=== PATIENT | male | born 1985 | race Caucasian/White ===

== ENCOUNTER 2019-02-20 09:58 | Inpatient (IN) | payer MEDICAID ==
[2019-02-20 10:15] VITALS: O2SAT 99
--- NOTE | 2019-02-20 10:27 | ED PDOC ---
Arrival/HPI - General Chief Complaint: Psychiatric Evaluation Time Seen by Provider: 02/20/19 09:59 Historian: Patient, EMS, Other ([facility] documentation) - History of Present Illness Narrative History of Present Illness (Text): 02/20/19 10:25 34-year-old male complaining of depression and suicidal ideation with a history of drug abuse. Patient denies chest pain or shortness of breath. No fevers or chills. Patient is psychiatric transfer from [facility] for admission for depression and suicidal ideation. Past Medical History - Provider Review Nursing Documentation Reviewed: Yes - Travel History Have you recently traveled outside [place] w/in the past 3 mons?: No - Infectious Disease Hx of Infectious Diseases: None - Cardiac Hx Cardiac Disorders: No - Neurological Hx Neurological Disorder: No - Gastrointestinal Hx Gastrointestinal Disorders: No - Psychiatric Hx Psychophysiologic Disorder: No Hx Depression: Yes Hx Schizophrenia: Yes Hx Substance Use: Yes - Anesthesia Hx Anesthesia: Yes Hx Anesthesia Reactions: No Family/Social History - Physician Review Nursing Documentation Reviewed: Yes Family/Social History: Unknown Family HX Smoking Status: Current Some Days Smoker Hx Alcohol Use: Yes Frequency of alcohol use: Socially Hx Substance Use: Yes Substance used: heroin, cocaine Allergies/Home Meds Allergies/Adverse Reactions: Allergies tomato Allergy (Verified 02/20/19 10:19) RASH trazodone Adverse Reaction (Verified 02/20/19 10:21) RASH Review of Systems - Review of Systems Constitutional: absent: Fatigue, Fevers Respiratory: absent: SOB Cardiovascular: absent: Chest Pain Gastrointestinal: absent: Abdominal Pain Musculoskeletal: absent: Arthralgias Psychiatric: Depression, Suicidal Ideation Physical Exam Vital Signs Reviewed: Yes Vital Signs Temp Pulse Resp BP Pulse Ox 02/20/19 10:00 98.1 F 54 L 18 128/68 99 Temperature: Afebrile Blood Pressure: Normal Pulse: Bradycardic Respiratory Rate: Normal Appearance: Positive for: Well-Appearing, Non-Toxic, Comfortable Pain Distress: None Mental Status: Positive for: Alert and Oriented X 3 - Systems Exam Head: Present: Atraumatic Respiratory/Chest: Present: Clear to Auscultation Cardiovascular: Present: Regular Rate and Rhythm Abdomen: No: Tenderness Neurological: Present: GCS=15, Speech Normal Skin: Present: Warm, Dry, Normal Color. No: Rashes Psychiatric: Present: Alert, Oriented x 3 Medical Decision Making ED Course and Treatment: 02/20/19 10:28 34-year-old male medically cleared for psychiatric admission from [facility]. Impression: Depression and suicidal ideation with polysubstance abuse Admit to the behavioral health floor Disposition/Present on Arrival - Present on Arrival Any Indicators Present on Arrival: No History of DVT/PE: No History of Uncontrolled Diabetes: No Urinary Catheter: No History of Decub. Ulcer: No History Surgical Site Infection Following: None - Disposition Have Diagnosis and Disposition been Completed?: Yes Diagnosis: Depression Disposition: HOSPITALIZED Disposition Time: 10:20 Patient Plan: Admission Condition: FAIR
--- NOTE | 2019-02-20 15:36 | PCM.BM ---
<Lou Miller - Last Filed: 02/20/19 15:33> Treatment Plan Problems - Problems identified on initial assessmt high risk suiciide Date Initiated: 02/20/19 Time Initiated: 15:34 Assessment reference: NA Status: Active feeling of worthlessness Date Initiated: 02/20/19 Time Initiated: 15:36 Assessment reference: NA Status: Active hopelessness/helplesness Date Initiated: 02/20/19 Time Initiated: 15:37 Assessment reference: NA Status: Active altered sleep pattern Date Initiated: 02/20/19 Time Initiated: 15:38 Assessment reference: NA Status: Active medication-non adherence Date Initiated: 02/20/19 Time Initiated: 15:39 Assessment reference: NA Status: Active anxiety r/t substance use Date Initiated: 02/20/19 Time Initiated: 15:40 Assessment reference: NA Status: Active low motivation to change Date Initiated: 02/20/19 Time Initiated: 15:41 Assessment reference: NA Status: Active Treatment assets and liabiliti Patient Assests: adapts well, ADL independent, negotiates basic needs Patient Liabilities: physical pain, substance abuse - Milieu Protocol Maintain good personal hygiene: daily Remind patient to perform daily oral care, daily Assist patient to perform ADL's, every shift Encourage regular showers Conduct patient checks and document Observation sheet: Q15 minutes Maintain personal safety: every shift Educate patient to report safety concerns to staff, every shift Monitor environment for contraband/sharps Medication safety: Monitor for expected outcome, potential side effects: every shift, Assess barriers to learning: every shift, Assess readiness for medication education: every shift Discharge/Continuing Care - Education Needs Education Needs: Patient Medication, Patient Diagnosis/Disease Process, Patient Coping Skills, Patient Placement options, Patient Community resources, Patient Personal Hygiene/Grooming, Patient Aftercare Safety Plan - Discharge Discharge Criteria: Tolerates medication w/o severe side effects, Free of Suicidal thoughts, Normal sleep pattern, Ability to care for self <Cecilia White - Last Filed: 02/20/19 16:13> - Diagnosis (1) Bipolar disorder Status: Acute Interventions: 02/20/19 16:14 Psychoeducation Psychopharmacology/adjustment of medications as needed/ monitoring possible side effects Monitor blood level of mood stabilizers Evaluate pt on daily basis Compliance with medications and follow up appointments Suicide and homicide risk assessment and prevention, coping strategies, safety plan Relapse prevention Reduction of symptoms Improve functional status Family involvement As outpatient: cognitive behavioral therapy (2) Polysubstance dependence including opioid type drug, episodic abuse Status: Acute Interventions: 02/20/19 16:14 Monitoring withdrawal symptoms Medical detoxification Pharmacotherapy for alcohol/benzos/opioid dependence Maintaining sobriety Relapse prevention Possible rehabilitation Motivational interviewing 12-step programs: AA meetings <Rachel Roberts - Last Filed: 02/21/19 16:20>
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
[2019-02-20] MEDS: Multivitamin With Minerals Tab PO SCH (16:38)
[2019-02-20] MEDS ORDERED: Alum-Mag Hydrox-Simethicone Susp (30 mL) PO PRN (18:31)
[2019-02-20] MEDS ORDERED: Magnesium Hydroxide Susp 30 ml UD PO PRN (18:32)
[2019-02-21 08:58] LABS: HDL CHOLESTEROL 22 mg/dL (29-60)
[2019-02-21 09:09] LABS: LDL CHOLESTEROL 45 mg/dL (0-129)
--- NOTE | 2019-02-21 15:17 | PCM.PYCHPN ---
Psychiatric Progress Note - Psychiatric Progress Note Patient seen today, length of contact: 30 minutes Patient Chief Complaint: "I don't feel good, I want to , I am withdrawing badly..." Problems Identified/Issues Discussed: Treatment plan, medications, aftercare plan, suicide/homicide prevention, coping strategies. Medical Problems: See HPI at present: Patient is withdrawing from opioids Diagnostic Results: Lab Results 02/21/19 08:00: Triglycerides 79, Cholesterol 75 L, LDL Cholesterol Direct 45, HDL Cholesterol 22 L Vital Signs Temp Pulse Pulse Resp BP Pulse Ox 02/21/19 07:34 97.8 F 70 20 02/20/19 16:00 79 118/74 02/20/19 11:52 50 L 20 02/20/19 10:00 98.1 F 54 L 18 128/68 99 DSM 5 Symptoms Update: Shortly pt is 34yo male with reported h/o mood spectrum disorder, polysubstance dependence, patient has at least one psychiatric admission in [address] [place] [address] and 2016, patient has questionable history of suicidal attempts, patient has chronic noncompliance with medications and follow-up appointments, patient was transferred from [facility] where he presented for evaluation of depressive symptoms and possible suicidal ideation, patient was medically cleared, transfer was uneventful. Patient requires further evaluation and stabilization and medication adjustment. Patient was seen today at the treatment team meeting room, patient presented with some improvement of his symptoms, patient was able to participate in interview, at the same time patient presented with opioid withdrawals, patient has goosebumps, rhinorrhea, pt complaining of muscle pain. Patient was advised to take medication as needed, treatment plan discussed in details. Patient was more pleasant and appreciative. Vital signs were within normal limits, most likely patient is withdrawing from opioids. Patient reported that he might also withdrawing from the alcohol, this functional tester typewriters advised patient that at present moment he is on Librium, still have withdrawal symptoms he needs to ask as needed medications. Patient reported that he feels hopeless, helpless, "my mind is not right, I cannot concentrate..", pt has h/o ADHD, will consider to add Wellbutrin. So far patient tolerates medications well, no side effects observed or reported, [place] 0, no EPS. As per staff patient is self isolating, not participating in unit activities, has withdrawal symptoms from opioids as well as alcohol. Impression: As per history bipolar disorder As per history attention deficit disorder Polysubstance abuse and dependence Rule out alcohol/opioid withdrawal symptoms Medication Change: Yes (Librium increased, Seroquel increased) Medical Record Reviewed: Yes Consults ordered or reviewed: Patient does not have any major medical issues, will consider to call medical consult for this patient if needs Mental Status Examination - Cognitive Function Orientation: Person, Place, Situation Memory: Impaired Attention: Poor Concentration: Poor Association: Loose Fund of Knowledge: Poor - Mood Mood: Depressed, Anxious - Affect Affect: Constricted (Irritable and angry), Flat - Formal Thought Process Formal Thought Process: Hallucinations, Delusions, Paranoia - Suicidal Ideation Suicidal Ideation: No Plan: Passive wish to be - Homicidal Ideation Homicidal Ideation: No Goal/Treatment Plan - Goal/Treatment Plan Need for Continued Stay: Remain at risks for inpatient hospitalization, Severe depression anxiety, Discharge may exacerbated symptoms, Severe functional impairment Progress Toward Problem(s) and Goals/Treatment Plan: Milieu/structure/supportive therapy SW consultation for discharge plan and social issues, possible inpatient rehab Med management Seroquel for psychosis and mood stabilization Neurontin for mood stabilization Multivitamins thiamine and folic acid Librium for possible alcohol withdrawal symptoms Symptomatic treatment for opioid withdrawals will consider wellbutrin for mood and adhd We will monitor vital signs Family involvement Follow up on labs Will monitor closely Pt was educated about risk/benefits and alternatives of medications, coping strategies (safety plan, suicide prevention), relapse prevention, importance of follow up with psychiatrist and therapist, stay away from drugs/alcohol/smoking Estimated Date of D/C: 02/28/19
[2019-02-21] MEDS: Multivitamin With Minerals Tab PO SCH (16:05)
[2019-02-22] MEDS: Multivitamin With Minerals Tab PO SCH (08:49)
--- NOTE | 2019-02-22 09:44 | PCM.PYCHPN ---
Psychiatric Progress Note - Psychiatric Progress Note Patient seen today, length of contact: 30 minutes Problems Identified/Issues Discussed: I reviewed assessment and recent notes. Patient is a 34 yo male with reported h/o mood spectrum disorder, polysubstance dependence, at least one psychiatric admission in [facility] in 2016, +questionable history of suicidal attempts, +chronic noncompliance with medications and follow-up appointments who was transferred from [facility] where he presented for evaluation of depressive symptoms and possible suicidal ideation. Patient has been depressed and labile on the unit but control is improving. Treatment team meeting on Sunday was productive, he could participate in an interview and express needs. Still reported feeling helpless and hopeless. Today he is a little more labile and unhappy. Indicates that he remains uncomfortable from withdrawals. He is superficially respectful but edgy and seems as though he can escalate if asked too many questions. Patient continues to deny any issues with his medications or any hallucinations. Thought process is coherent overall as he can respond to my questioning relevantly and consistently. As per staff patient is oriented x3, self isolating, guarded and not participating in unit activities. He can be labile and generally doesn't want to engage with others. This may be due to the discomfort of current withdrawals. Nonetheless his appetite is good and needs some limit setting about having too many snacks. Diagnostic Results: As per history bipolar disorder As per history attention deficit disorder Polysubstance abuse and dependence Rule out alcohol/opioid withdrawal symptoms Medication Change: Yes (Librium increased, Seroquel increased) Medical Record Reviewed: Yes Mental Status Examination - Cognitive Function Orientation: Person, Place, Situation Memory: Impaired Attention: Poor Concentration: Poor Association: Loose Fund of Knowledge: Poor - Mood Mood: Depressed, Anxious - Affect Affect: Constricted (Irritable and angry), Flat - Formal Thought Process Formal Thought Process: Hallucinations, Delusions, Paranoia - Suicidal Ideation Suicidal Ideation: No - Homicidal Ideation Homicidal Ideation: No Goal/Treatment Plan - Goal/Treatment Plan Need for Continued Stay: Remain at risks for inpatient hospitalization, Severe depression anxiety, Discharge may exacerbated symptoms, Severe functional impairment Progress Toward Problem(s) and Goals/Treatment Plan: * group, milieu and supportive tx * Symptomatic treatment of opioid withdrawals, c/w clonidine 0.1 mg po TID prn * Librium 50 mg po QID prn * Consider naltrexone if patient is motivated, however he needs to be clean from opiates for at least 7-10 days. * Neurontin 300 mg po tid * Seroquel 100 mg po bid and 100 mg po HS * Consider Wellbutrin for mood and hx of adhd symptoms. * Ambien 10 mg po HS prn * Vitals reviewed and noted below: Selected Entries 02/21/19 02/21/19 02/22/19 07:34 16:00 05:12 Temperature 97.8 F Pulse Rate 70 102 H 78 Respiratory 20 Rate Blood Pressure 119/66 110/74 Estimated Date of D/C: 02/28/19
[2019-02-23] MEDS: Multivitamin With Minerals Tab PO SCH (10:08)
--- NOTE | 2019-02-23 10:28 | PCM.PYCHPN ---
Psychiatric Progress Note - Psychiatric Progress Note Patient seen today, length of contact: 30 minutes Problems Identified/Issues Discussed: I reviewed assessment and recent notes. Patient is a 34 yo male with reported h/o mood spectrum disorder, polysubstance dependence, at least one psychiatric admission in [facility] in 2016, +questionable history of suicidal attempts, +chronic noncompliance with medications and follow-up appointments who was transferred from [facility] where he presented for evaluation of depressive symptoms and possible suicidal ideation. Patient has been depressed and labile on the unit but control is improving. Treatment team meeting on Sunday was productive, he could participate in an interview and express needs. Still reported feeling helpless and hopeless. Over the weekend he has been a little more labile and unhappy. Indicates that he remains uncomfortable "I am still sweating a lot" and cannot sleep well because of withdrawals. He is superficially respectful but edgy and seems as though he can escalate if asked too many questions. Indicates that he still "doesn't feel normal". Patient continues to deny any issues with his medications or any hallucinations. Thought process is coherent overall as he can respond to my questioning rele vantly and consistently. As per staff patient is oriented x3, self isolating, guarded and not participating in unit activities. He can be labile and generally wants to be left alone which is what he actually verbalizes "I want to be left alone, I don't feel well". This is very likely due to the discomfort of current withdrawals. Nonetheless his appetite is good and needs some limit setting about having too many snacks. Diagnostic Results: As per history bipolar disorder As per history attention deficit disorder Polysubstance abuse and dependence Rule out alcohol/opioid withdrawal symptoms Medication Change: Yes (Librium decreased, added methadone) Medical Record Reviewed: Yes Mental Status Examination - Cognitive Function Orientation: Person, Place, Situation Memory: Impaired Attention: Poor Concentration: Poor Association: Loose Fund of Knowledge: Poor - Mood Mood: Depressed, Anxious - Affect Affect: Constricted (Irritable and angry), Flat - Formal Thought Process Formal Thought Process: Hallucinations, Delusions, Paranoia - Suicidal Ideation Suicidal Ideation: No - Homicidal Ideation Homicidal Ideation: No Goal/Treatment Plan - Goal/Treatment Plan Need for Continued Stay: Remain at risks for inpatient hospitalization, Severe depression anxiety, Discharge may exacerbated symptoms, Severe functional impairment Progress Toward Problem(s) and Goals/Treatment Plan: * group, milieu and supportive tx * Symptomatic treatment of opioid withdrawals, c/w clonidine 0.1 mg po TID prn. Patient given methadone 5 mg x1 on 02/23/19 to help with withdrawals. * Librium 50 mg po QID decreased to q8 on 02/23/19 VSS * Consider naltrexone if patient is motivated, however he needs to be clean from opiates for at least 7-10 days. * Neurontin 300 mg po tid * Seroquel 100 mg po bid and 100 mg po HS * Consider Wellbutrin for mood and hx of adhd symptoms. * Ambien 10 mg po HS changed to standing * Vitals reviewed and noted below: Selected Entries 02/22/19 02/22/19 02/22/19 07:00 16:13 22:39 Temperature 97.6 F Pulse Rate 64 68 70 Respiratory 18 Rate Blood Pressure 102/61 112/63 112/69 02/23/19 05:06 Temperature Pulse Rate 86 Respiratory Rate Blood Pressure 101/72 Estimated Date of D/C: 02/28/19
[2019-02-24] MEDS: Multivitamin With Minerals Tab PO SCH (08:22)
--- NOTE | 2019-02-24 08:46 | PCM.PYCHPN ---
Psychiatric Progress Note - Psychiatric Progress Note Patient seen today, length of contact: 30 minutes Problems Identified/Issues Discussed: I reviewed assessment and recent notes. Patient is a 34 yo male with reported h/o mood spectrum disorder, polysubstance dependence, at least one psychiatric admission in [facility] in 2016, +questionable history of suicidal attempts, +chronic noncompliance with medications and follow-up appointments who was transferred from [facility] where he presented for evaluation of depressive symptoms and possible suicidal ideation. Patient has been depressed and labile on the unit but control is improving. Treatment team meeting on Sunday was productive, he could participate in an interview and express needs. Still reported feeling helpless and hopeless. Over the weekend he has been a little more labile and unhappy. Indicates that he remains uncomfortable "I am still sweating a lot" and cannot sleep well because of withdrawals. He was superficially respectful but edgy and seemed as though he could escalate if asked too many questions. Indicates that he still "doesn't feel normal". Staff noted that he was guarded and self-isolating and generally wanted to be left alone. This is very likely due to the discomfort of current withdrawals. Today patient continues to deny any issues with his medications or any hallucinations. Thought process is coherent overall as he can respond to my questioning relevantly and consistently. He is slowly feeling better, irritability and emotional control are improving. He is more visible and appears better groomed. He reports appreciation for the methadone and librium provided to him. He reports interest and motivation to attend inpatient rehab, [facility] sober living facility in [place]. As per staff, patient is oriented x3 and spending more time participating in unit activities. He was observed watching tv and interacting with peers yesterday. He seems less angry and arias. And more grateful. Appetite is good and he slept better with ambien provided yesterday. Diagnostic Results: As per history bipolar disorder As per history attention deficit disorder Polysubstance abuse and dependence Rule out alcohol/opioid withdrawal symptoms Medication Change: Yes (Librium further decreased, added methadone) Medical Record Reviewed: Yes Mental Status Examination - Cognitive Function Orientation: Person, Place, Situation Memory: Impaired Attention: Poor Concentration: Poor Association: Loose Fund of Knowledge: Poor - Mood Mood: Depressed, Anxious - Affect Affect: Constricted (Irritable and angry), Flat - Formal Thought Process Formal Thought Process: Hallucinations (denied), Delusions (not elicited), Paranoia - Suicidal Ideation Suicidal Ideation: No - Homicidal Ideation Homicidal Ideation: No Goal/Treatment Plan - Goal/Treatment Plan Need for Continued Stay: Remain at risks for inpatient hospitalization, Severe depression anxiety, Discharge may exacerbated symptoms, Severe functional impairment Progress Toward Problem(s) and Goals/Treatment Plan: * group, milieu and supportive tx * Symptomatic treatment of opioid withdrawals, c/w clonidine 0.1 mg po TID prn. Patient given methadone 5 mg x1 on 02/23/19 to help with withdrawals and will be given another 5 mg x1 dose today. * Librium 50 mg po QID decreased to q8 on 02/23/19 and then again to 25 mg po q8 on 02/24/19 VSS * Consider naltrexone if patient is motivated, however he needs to be clean from opiates for at least 7-10 days. * Neurontin 300 mg po tid * Seroquel 100 mg po bid and 100 mg po HS * Consider Wellbutrin for mood and hx of adhd symptoms. * Ambien 10 mg po HS changed to standing on 02/23/19 * Vitals reviewed and noted below: Selected Entries 02/23/19 02/23/19 07:16 16:20 Temperature 97.1 F L Pulse Rate 86 82 Respiratory 20 Rate Blood Pressure 101/70 100/58 L Estimated Date of D/C: 02/28/19
[2019-02-25] MEDS: Multivitamin With Minerals Tab PO SCH (08:35)
--- NOTE | 2019-02-26 05:59 | PCM.PYCHPN ---
Psychiatric Progress Note - Psychiatric Progress Note Patient seen today, length of contact: 30 minutes Problems Identified/Issues Discussed: I reviewed assessment and recent notes. Patient is a 34 yo male with reported h/o mood spectrum disorder, polysubstance dependence, at least one psychiatric admission in [facility] in 2016, +questionable history of suicidal attempts, +chronic noncompliance with medications and follow-up appointments who was transferred from [facility] where he presented for evaluation of depressive symptoms and possible suicidal ideation. Patient has been depressed and labile on the unit but emotional control is steadily improving. Treatment team meeting on Sunday was productive, he could participate in an interview and express needs. Still reported feeling helpless and hopeless. Over the weekend he was a little more labile and unhappy. Indicated that he was uncomfortable and "still sweating a lot" and cannot sleep well because of withdrawals. He was superficially respectful but edgy and seemed as though he could escalate if asked too many questions. Indicated that he still "doesn't feel normal". Staff noted that he was guarded and self-isolating and generally wanted to be left alone. This is very likely due to the discomfort of current withdrawals. On Sunday and Sunday (today) patient continues to deny any issues with his medications or any hallucinations. Thought process is coherent overall as he can respond to my questioning relevantly and consistently. He is slowly feeling better, irritability and moodiness is less significant. He is more visible and appears better groomed. He reports appreciation for the methadone and librium provided to him. He reports interest and motivation to attend inpatient rehab, [facility]-a sober living facility in [place] and expresses interest in outpatient options thereafter. As per staff, patient is oriented x3 and spending more time participating in unit activities. He was observed watching tv and interacting with peers. Appetite is good and he is sleeping a little better with ambien. Presently patient still "doesn't feel right". He endorses depression, helpless and hopelessness at times. He admits to periods of disorientation and fear. Denies AVH,SI or HI. Diagnostic Results: As per history bipolar disorder As per history attention deficit disorder Polysubstance abuse and dependence Rule out alcohol/opioid withdrawal symptoms Medication Change: Yes (Librium further decreased, added methadone) Medical Record Reviewed: Yes Mental Status Examination - Cognitive Function Orientation: Person, Place, Situation Memory: Impaired Attention: Poor Concentration: Poor Association: Loose Fund of Knowledge: Poor - Mood Mood: Depressed, Anxious - Affect Affect: Constricted (Irritable and angry), Flat - Formal Thought Process Formal Thought Process: Hallucinations (denied), Delusions (not elicited), Paranoia - Suicidal Ideation Suicidal Ideation: No - Homicidal Ideation Homicidal Ideation: No Goal/Treatment Plan - Goal/Treatment Plan Need for Continued Stay: Remain at risks for inpatient hospitalization, Severe depression anxiety, Discharge may exacerbated symptoms, Severe functional impairment Progress Toward Problem(s) and Goals/Treatment Plan: * group, milieu and supportive tx * Symptomatic treatment of opioid withdrawals, c/w clonidine 0.1 mg po TID prn. Patient given methadone 5 mg x1 on 02/23/19 to help with withdrawals and will be given another 5 mg x1 dose today. * Librium 50 mg po QID decreased to q8 on 02/23/19 and then again to 25 mg po q8 on 02/24/19 VSS * Consider naltrexone if patient is motivated, however he needs to be clean from opiates for at least 7-10 days. * Neurontin 300 mg po tid * Seroquel 100 mg po bid and 100 mg po HS * Consider Wellbutrin for mood and hx of adhd symptoms. * Ambien 10 mg po HS changed to standing on 02/23/19 * Vitals reviewed and noted below: Selected Entries 02/24/19 02/24/19 07:21 16:00 Temperature 96.8 F L Pulse Rate 72 86 Respiratory 20 Rate Blood Pressure 113/68 134/75 * No new lab results noted for today Estimated Date of D/C: 02/28/19
[2019-02-26 07:16] VITALS: RESP 20
[2019-02-26] MEDS: Multivitamin With Minerals Tab PO SCH (09:39)
--- NOTE | 2019-02-26 11:02 | PCM.PYCHPN ---
Psychiatric Progress Note - Psychiatric Progress Note Patient seen today, length of contact: 30 minutes Problems Identified/Issues Discussed: I reviewed assessment and recent notes. Patient is a 34 yo male with reported h/o mood spectrum disorder, polysubstance dependence, at least one psychiatric admission in [facility] in 2016, +questionable history of suicidal attempts, +chronic noncompliance with medications and follow-up appointments who was transferred from [facility] where he presented for evaluation of depressive symptoms and possible suicidal ideation. Treatment team meeting on Sunday was productive, he could participate in an interview and express needs. Still reported feeling helpless and hopeless. Over the weekend he was a little more labile and unhappy. Indicated that he was uncomfortable and "still sweating a lot" and cannot sleep well because of withdrawals. He was superficially respectful but edgy and seemed as though he could escalate if asked too many questions. Indicated that he still "doesn't feel normal". Staff noted that he was guarded and self-isolating and generally wanted to be left alone. This is very likely due to the discomfort of current withdrawals. On Sunday, Sunday and Sunday (today) patient continued to deny any issues with his medications or any hallucinations. Oriented x3. Thought process is coherent overall as he can respond to my questioning relevantly and consistently. He is slowly feeling better, irritability and moodiness is less significant though patient can still be entitled and snappy. Unfortunately patient had an outburst yesterday evening when staff reminded him about unit rules regarding cell phone use. He was loud, derogatory and offensive. Patient apologizes for his behavior this morning.. Emotional control is steadily and slowly improving. He is more visible and appears better groomed. He reports appreciation for the methadone and librium provided to him. Tolerating taper thus far. Patient reports interest and motivation to attend inpatient rehab and has been working with social work regarding disposition. He also expresses interest in outpatient options thereafter. As per staff, patient is oriented x3 and spending more time participating in unit activities. He was observed watching tv and interacting with peers. He can be very manipulative and requires strong limit setting. Appetite is good. Presently patient still "doesn't feel right". He endorses depression, helpless and hopelessness at times. He admits to periods of paralyzing fear. Denies AVH,SI or HI. Diagnostic Results: As per history bipolar disorder As per history attention deficit disorder Polysubstance abuse and dependence Rule out alcohol/opioid withdrawal symptoms Medication Change: Yes (Librium further decreased, methadone decreased, wellbutrin initiated) Medical Record Reviewed: Yes Mental Status Examination - Cognitive Function Orientation: Person, Place, Situation Memory: Impaired Attention: WNL Concentration: Poor Association: Loose Fund of Knowledge: Poor - Mood Mood: Depressed, Anxious - Affect Affect: Constricted (Irritable and angry), Flat - Formal Thought Process Formal Thought Process: Hallucinations (denied), Delusions (not elicited), Paranoia - Suicidal Ideation Suicidal Ideation: No - Homicidal Ideation Homicidal Ideation: No Goal/Treatment Plan - Goal/Treatment Plan Need for Continued Stay: Remain at risks for inpatient hospitalization, Severe depression anxiety, Discharge may exacerbated symptoms, Severe functional impairment Progress Toward Problem(s) and Goals/Treatment Plan: * group, milieu and supportive tx * Symptomatic treatment of opioid withdrawals, c/w clonidine 0.1 mg po TID prn. Patient given methadone 5 mg x1 on 02/23, 02/24, 02/25 to help with withdrawals. Dose will be decreased to 2.5 mg today. * Librium 50 mg po QID decreased to q8 on 02/23/19 and then again to 25 mg po q8 on 02/24/19 VSS. Librium decreased to 25 mg po q12 on 02/25/19 and to 25 mg qhs on 02/26/19. * Consider naltrexone if patient is motivated, however he needs to be clean from opiates for at least 7-10 days. * Neurontin 300 mg po tid * Seroquel increased to 75 mg po bid and 100 mg po HS due to patient's recent lability * Add Wellbutrin XL 150 mg AM for mood and hx of adhd symptoms per patient request. * Ambien 10 mg po HS changed to standing on 02/23/19 * Vitals reviewed and noted below: Selected Entries 02/25/19 02/25/19 07:00 16:00 Temperature 97.9 F Pulse Rate 85 81 Respiratory 19 Rate Blood Pressure 108/63 129/65 * No new lab results noted for today Estimated Date of D/C: 02/28/19
[2019-02-26] MEDS: buPROPion 150 mg/24 Hours XL Tab PO SCH (11:13)
[2019-02-26] MEDS ORDERED: Petrolatum Oint Foilpak (5 gm) TOP PRN (19:05)
[2019-02-27 07:34] VITALS: BP 109/70; PULSE 85; TEMP 98.4
[2019-02-27] MEDS: buPROPion 150 mg/24 Hours XL Tab PO SCH (08:29)
[2019-02-27] MEDS: Multivitamin With Minerals Tab PO SCH (08:31)
--- NOTE | 2019-02-27 08:45 | PCM.PYCHDC ---
Mental Status Examination - Mental Status Examination Orientation: Person, Place, Situation Memory: Intact Mood: Neutral Affect: Broad Speech: Appropriate Attention: WNL Concentration: WNL Association: WNL Fund of Knowledge: WNL Formal Thought Process: No Impairment Description of patient's judgement and insight: Improved and fair I/J Psychotic Thoughts and Behaviors: Patient denied hallucinations or paranoia. Delusions were not elicited Suicidal Ideation: No Current Homicidal Ideation?: No Discharge Summary - Discharge Note Reason for Hospitalization: I reviewed assessment and recent notes. Patient is a 34 yo male with reported h/o mood spectrum disorder, polysubstance dependence, at least one psychiatric admission in [facility] in 2015, +questionable history of suicidal attempts, +chronic noncompliance with medications and follow-up appointments who was transferred from [facility] where he presented for evaluation of depressive symptoms and possible suicidal ideation. Psychiatric History (includes Medical, Family, Personal Hx): See HPI Laboratory Data: Laboratory Tests 02/21/19 02/21/19 08:00 08:00 Triglycerides 79 Cholesterol 75 L LDL Cholesterol Direct 45 HDL Cholesterol 22 L RPR Nonreactive Consultations:: List each consultation separately and include: 1. Reason for request. 2. Findings. 3. Follow-up Consultations: NONE Summary of Hospital Course include:: 1. Description of specific treatment plan utilized for patients during their course of treatmen. 2. Summarize the time- course for resolution of acute symptoms and/or regressed behaviors. 3. Describe issues identified and worked on during hospitalization. 4. Describe medication utilized. 5. Describe medical problems identified and treated. 6. Reassessment of suicide risk Summary of Hospital Course: Patient is a 34 yo male with reported h/o mood spectrum disorder, polysubstance dependence, at least one psychiatric admission in [facility] in 2016, +questionable history of suicidal attempts, +chronic noncompliance with medications and follow-up appointments who was transferred from [facility] where he presented for evaluation of depressive symptoms and possible suicidal ideation. Treatment team meeting on Sunday was productive, he could participate in an interview and express needs. Still reported feeling helpless and hopeless. Over the weekend he was a little more labile and unhappy. Indicated that he was uncomfortable and "still sweating a lot" and cannot sleep well because of w ithdrawals. He was superficially respectful but edgy and seemed as though he could escalate if asked too many questions. Indicated that he still "doesn't feel normal". Staff noted that he was guarded and self-isolating and generally wanted to be left alone. This is very likely due to the discomfort of current withdrawals. From Sunday to day of discharge, , patient continued to deny any issues with his medications or any hallucinations. Oriented x3. Thought process is coherent overall as he can respond to my questioning relevantly and consistently. He is slowly feeling better, irritability and moodiness is less significant though patient can still be entitled and snappy. Unfortunately patient had an outburst on Sunday evening when staff reminded him about unit rules regarding cell phone use. He was loud, derogatory and offensive. Patient apologized for his behavior the next morning.. Emotional control steadily and slowly improved over course By discharge patient was more visible and appeared better groomed. He reported appreciation for the methadone and librium provided to him. Tolerating taper thus far. Patient reported interest and motivation to attend inpatient rehab and worked with social work regarding disposition. He also expresses interest in outpatient options thereafter. As per staff, patient is oriented x3 and spending more time participating in unit activities. He was observed watching tv and interacting with peers. Appetite is good. Denied SI or HI at d/c. - Final Diagnosis (DSM 5) Condition upon Discharge: FAIR DSM 5: As per history bipolar disorder As per history attention deficit disorder Polysubstance abuse and dependence Rule out alcohol/opioid withdrawal symptoms Disposition: REHAB FACILITY/REHAB UNIT Follow-up Treatment Plan: DISPOSITION: Patient accepted to [facility] for substance abuse admission and rehabilitation. Patient's intake is scheduled for 12:00pm. Patient can not arrive to the facility after 12pm. [employer] contacted [employer]( [phone]) and spoke with Pierre to schedule transportation. Patient will be picked up at 9:30am. Confirmation # [id number] MEDICATIONS 30 DAY SUPPLY CALLED INTO [facility] ON 02/26/19 * Considered naltrexone however patient deferred. * Neurontin 300 mg po tid for mood control and anxiety * Seroquel 50 mg po bid and 100 mg po HS for lability * Wellbutrin XL 150 mg AM for mood and hx of adhd symptoms - Smoking Cessation Smoking Cessation Medication prescribed: No - Antipsychotic Medications Pt discharged on 2 or more routine antipsychotic medications: No
== END 2019-02-27 15:05 | DRG 430 ==
LOC: ED 09:58 → ERH 10:21 → PSYC 11:47
PROVIDERS: ADMIT Psychiatry & Neurology Psychiatry; ATTEND Psychiatry & Neurology Psychiatry
DX: F31.9 Bipolar disorder, unspecified (principal); F10.239 Alcohol dependence with withdrawal, unspecified; F11.20 Opioid dependence, uncomplicated; F13.20 Sedative, hypnotic or anxiolytic dependence, uncomplicated; F90.9 Attention-deficit hyperactivity disorder, unspecified type; F20.9 Schizophrenia, unspecified; G47.00 Insomnia, unspecified; R45.851 Suicidal ideations; Z79.899 Other long term (current) drug therapy; Z81.1 Family history of alcohol abuse and dependence; Z81.8 Family history of other mental and behavioral disorders; Z91.14 Patient's other noncompliance with medication regimen